=== PATIENT | female | born 1935 | race Caucasian/White ===

== ENCOUNTER 2020-01-30 15:17 | Emergency (ER) | payer MEDICARE ==
[~2020-01-30] VITALS: Ht 167.6 cm; Wt 90.7 kg
[2020-01-30] MEDS ORDERED: ATORVASTATIN CA20 MG PO (15:40)
[2020-01-30] MEDS ORDERED: METOPROLOL SUCC50 MG PO (15:40)
[2020-01-30] MEDS ORDERED: LEVALBUTEROL INH (15:40)
[2020-01-30] MEDS ORDERED: SPIRIVA18 MCG INH (15:40)
[2020-01-30] MEDS ORDERED: LEVOTHYROXINE100 MC1 PO (15:40)
[2020-01-30] MEDS ORDERED: RYTHMOL SR225 MG PO (15:40)
[2020-01-30] MEDS ORDERED: SYMBICORT 16010.2 GM INH (15:40)
[2020-01-30] MEDS ORDERED: LOSARTAN POTAS100 MG PO (15:40)
[2020-01-30] MEDS ORDERED: LEVALBUTER0.63 MG/3 NEB (15:40)
[2020-01-30] MEDS ORDERED: ELIQUIS5 M1 PO (15:40)
--- NOTE | 2020-01-30 15:42 | Emergency Department Note ---
History of Present Illnes History of Present Illness Chief Complaint: painful rash on forehead History of Present Illness This is a 84 year old female. was doing well until 1 week ago then fell hit forehead. went to the ER and had negative ct scan of the brain. Historian: Patient, Family Member Arrival Mode: Car History limited by: condition of the patient (normal) Integration Developer Required: No Onset (how long ago): day(s) (1) Location: see above Quality: sharp Radiation: Reports non-radiation Severity: moderate Onset quality: gradual Duration (how long): day(s) (1) Timing of current episode: constant Progression: worsening Chronicity: new Context: Denies recent illness, Denies recent surgery, Denies recent immobilization, Denies recent travel, Denies trauma/injury, Denies new medications, Denies hx of DVT/PE, Denies non-compliance w/ medications Relieving factors: none Exacerbating factors: none Associated symptoms: Reports rash Treatments prior to arrival: none Past Medical/Family History Physician Review I have reviewed the patient's past medical and family history. Any updates have been documented here. Past Medical History Recent Fever: No Clinical Suspicion of Infectio: Yes New/Unexplained Change in Ment: No Past Medical History: Hypertension, COPD, Hypothyroidism, Hyperlipedemia Past Surgical History: Cholecysctectomy, Hysterectomy, Knee Replacement Other Surgery: breast biopsy (benign) Social History Smoking Cessation: Never Smoker Counseling Performed: No Any Illegal Drug Use: No TB Exposure/Symptoms: No Physically hurt or threatened: No Family History Family history of heart diseas: No Other Any Pre-Existing Lines (PICC,: No Is patient up to date on immun: No Review of Systems Review of Systems Constitutional: Reports no symptoms EENTM: Reports no symptoms Cardiovascular: Reports no symptoms Respiratory: Reports no symptoms Gastrointestinal: Reports no symptoms Genitourinary: Reports no symptoms Musculoskeletal: Reports no symptoms Integumentary: Reports as per HPI Neurological: Reports no symptoms Psychological: Reports no symptoms Endocrine: Reports no symptoms Hematological/Lymphatic: Reports no symptoms Review of other systems: All other systems negative Physical Exam Related Data Allergies: Coded Allergies: cephalexin (Verified Allergy, Unknown, 01/30/20) codeine (Verified Allergy, Unknown, 01/30/20) Triage Vital Signs Vital Signs Date Time Temp Pulse Resp B/P (MAP) Pulse Ox O2 Delivery O2 Flow Rate FiO2 01/30/20 15:27 99.1 77 20 167/92 95 Room Air Vital signs reviewed: Yes Physical Exam CONSTITUTIONAL Constitutional: Present well-developed, Present well-nourished HENT HENT: Present normocephalic, Present atraumatic, Present oropharynx clear/moist, Present nose normal HENT L/R: Present left ext ear normal, Present right ext ear normal EYES Eyes: Reports PERRL, Reports conjunctivae normal NECK Neck: Present ROM normal PULMONARY Pulmonary: Present effort normal, Present breath sounds normal CARDIOVASCULAR Cardiovascular: Present regular rhythm, Present heart sounds normal, Present capillary refill normal, Present normal rate GASTROINTESTINAL Abdominal: Present soft, Present nontender, Present bowel sounds normal GENITOURINARY Genitourinary: Present exam deferred SKIN Skin: Present warm, Present dry, Present erythema (5cm diameter/healing abrasion/foread hematoma) MUSCULOSKELETAL Musculoskeletal: Present ROM normal NEUROLOGICAL Neurological: Present alert, Present oriented x 3, Present no gross motor or sensory deficits PSYCHOLOGICAL Psychological: Present mood/affect normal, Present judgement normal Assessment & Plan Medical Decision Making MDM cellulitis Assessment & Plan Final Impression: (1) Cellulitis Depart Disposition: HOME, SELF-CARE Last Vital Signs Date Time Temp Pulse Resp B/P (MAP) Pulse Ox O2 Delivery O2 Flow Rate FiO2 01/30/20 15:27 99.1 77 20 167/92 95 Room Air Home Meds Active Scripts Prednisone (PREDNISONE) 20 Mg Tab, 60 MG PO DAILY PRN for MODERATE PAIN (4-6), #12 TAB take all 3 20 mg pills at once Prov:PATY CARRERO 01/30/20 Doxycycline Hyclate (DOXYCYCLINE HYCLATE) 100 Mg Tablet, 100 MG PO Q12H, #20 TAB Prov:PATY CARRERO 01/30/20 Sulfamethoxazole/Trimethoprim (BACTRIM DS TABLET) 1 Each Tablet, 1 TAB PO Q12H, #28 TAB Prov:PATY CARRERO 01/30/20 Reported Medications Atorvastatin Calcium (ATORVASTATIN CALCIUM) 20 Mg Tablet, 20 MG PO HS, #30 TAB 01/30/20 [levalbuterol tar hfa] No Conflict Check, 45 MCG INH PRN 01/30/20 Metoprolol Succinate (METOPROLOL SUCCINATE) 50 Mg Tab.er.24h, 50 MG PO DAILY, MG 01/30/20 Apixaban (Eliquis) 5 Mg Tab.ds.pk, 1 TAB PO DAILY 01/30/20 Budesonide/Formoterol Fumarate (SYMBICORT 160-4.5 MCG INHALER) 10.2 Gm Hfa.aer.ad, 0 INH BID, INH 2 PUFFS 01/30/20 Tiotropium Deaver (SPIRIVA) 18 Mcg Cap.w.dev, 18 MCG INH, ML 01/30/20 Propafenone Hcl (RYTHMOL SR) 225 Mg Capcr, 225 MG PO BID, CAP 01/30/20 Losartan Potassium (LOSARTAN POTASSIUM) 100 Mg Tablet, 100 MG PO PRN, TAB 01/30/20 Levothyroxine Sodium (LEVOTHYROXINE SODIUM) 100 Mcg Vial, 200 MCG PO DAILY, ML 01/30/20 Discontinued Reported Medications Levalbuterol Hcl (LEVALBUTEROL HCL) 0.63 Mg/3 Ml Vial.neb, 0.63 MG NEB, EACH 01/30/20 PATY CARRERO Jan 30, 2020 15:42
[2020-01-30] MEDS: SODIUM CHLORIDE FLUSH 10 ML SYR INJ PRN (15:51)
[2020-01-30] MEDS ORDERED: CLINDAMYCIN PHOS 300MG/2ML VIAL ONE (15:51)
[2020-01-30] MEDS ORDERED: METHYLPREDNISOLONE SOD SUCC 125 MG/2ML VIAL ONE (15:51)
[2020-01-30] MEDS: CLINDAMYCIN 600 MG/50 ML IV ONE (15:51)
[2020-01-30] MEDS: METHYLPREDNISOLONE SOD SUCC 125 MG/2ML VIAL IV ONE (15:51)
[2020-01-30] MEDS: TRIMETHOPRIM/SULFAMETHOXAZOLE 160-800 MG TAB PO ONE (15:52)
[2020-01-30] MEDS: CLINDAMYCIN 300 MG IV STA (15:52)
[2020-01-30] MEDS ORDERED: CLINDAMYCIN 600MG / 50ML 50 ML IV ONE (15:52)
[2020-01-30] MEDS: TRAMADOL HCL 50 MG TAB PO ONE (16:15)
[2020-01-30] MEDS ORDERED: TRAMADOL HCL 50 MG TAB ONE (16:21)
--- OUTSIDE RECORDS SUMMARY | 2020-01-30 16:38 | XMS REPORT | Clinical Summary ---
Author Author Reynold [facility] Organization [facility] Address Unknown Phone Unavailable Care Team Providers Care Client Solutions Specialist Name Role Phone Asked, No Pcp PCP Unavailable Allergies Comments Active Allergy Reactions Severity Noted Date Codeine Anaphylaxis High 02/08/2016 Cephalexin Rash Low 02/08/2016 Medications End Date Status Medication Sig Dispensed Refills Start Date Active levothyroxine (SYNTHROID, 0 LEVOTHROID) 200 MCG 6 tablet Active levothyroxine (SYNTHROID, 0 LEVOTHROID) 25 MCG tablet 6 Active propafenone SR (RYTHMOL 2 (two) times 0 SR) 225 MG 12 hr capsule a day. 6 Active aspirin (ECOTRIN) 81 MG Take 81 mg by 0 enteric coated tablet mouth daily. Active multivitamin (THERAGRAN) Take 1 tablet 0 tablet by mouth daily. Active cholecalciferol, vitamin Take 1,000 0 D3, (VITAMIN D3) 1,000 Units by unit tablet mouth daily. 07/29/2019 Discontinued (Stop Taking at Discharge) VESICARE 5 mg tablet 0 6 08/28/2019 atorvastatin (LIPITOR) 20 Take 1 tablet 30 tablet 0 mg tablet (20 mg total) 0 by mouth nightly for 30 days. Default OP ins 08/29/2019 metoprolol succinate XL Take 1 tablet 30 tablet 0 (TOPROL-XL) 25 mg 24 hr (25 mg total) 0 tablet by mouth daily for 30 days. Active Problems Problem Noted Date Bradycardia 07/24/2019 Encounters Care Team Description Date Type Specialty Sae Wolff MD Pacemaker insertion new or replacement [ 19011 (CPT)] 07/27/2019 Surgery Procedural Cardiolo gy Deb Nance MD Li, George C., MD Bradycardia (Primary Dx) 07/24/2019 [facility] Internal Me dicine - Encounter 07/29/2019 after 01/29/2019 Surgical History Surgery Date Site/Laterality Comments CARDIAC CATHETERIZATION 02/08/2016 N/A Proced ure: Cv left heart cath; Surgeon: Rj Hyde MD; Location: [facility] Location; Service: Cardiovascular; Laterality: N /A; CARDIAC CATHETERIZATION 02/08/2016 N/A Proced ure: Cv selective coronary angiography; Surgeon: Rj Hyde MD; Location: [facility] Location; Service: Cardiovasc ular; Laterality: N/A; CARDIAC CATHETERIZATION 02/08/2016 N/A Proced ure: Left ventriculography; Surgeon: Rj Hyde MD; Location: [facility] Location; Service: Cardiovascular; La terality: N/A; CARDIAC ELECTROPHYSIOLOGY 07/27/2019 N/A Proc edure: Pacemaker insertion new or replacement; PROCEDURE Surgeon: Sae Wolff M D; Location: [facility] Location; Service: Cardiovascular; Laterality: N/A; Abbo tt Medical devices from this surgery are i n the Implants section. Medical History Medical History Date Comments Heart murmur Hypertension Disease of thyroid gland Arrhythmia COPD (chronic obstructive pulmonary disease) (HCC) Coronary artery disease Family History Medical History Relation Name Comments Heart attack Brother Heart disease Brother Heart attack Father Heart disease Father Cancer Mother Hypertension Mother Heart disease Paternal Aunt Heart disease Paternal Uncle Relation Name Status Comments Brother Father Mother Paternal Aunt Paternal Uncle Social History Date Tobacco Use Types Packs/Day Years Used Former Smoker Cigarettes 30 Smokeless Tobacco: Never Used Drinks/Week oz/Week Comments Alcohol Use No Sex Assigned at Date Recorded Not on file Last Filed Vital Signs Reading Time Taken Comments Vital Sign 133/76 07/29/2019 7:40 AM CDT Blood Pressure 80 07/29/2019 7:40 AM CDT Pulse 36.4 C (97.6 F) 07/29/2019 7:40 AM CDT Temperature 18 07/29/2019 7:40 AM CDT Respiratory Rate 94% 07/29/2019 7:40 AM CDT Oxygen Saturation - - Inhaled Oxygen Concentration 90.2 kg (198 lb 14.4 oz) 07/29/2019 5:00 AM CDT Weight 170.2 cm (5' 7") 07/24/2019 6:15 PM CDT Height 31.15 07/24/2019 6:15 PM CDT Body Mass Index Plan of Treatment Health Maintenance Due Date Last Done Comments SHINGLES VACCINES (#1) 1987 65+ PNEUMOCOCCAL VACCINE 2002 (1 of 1 - PPSV23) INFLUENZA VACCINE 10/09/2019 Implants Device Identifier Shelf Expiration Date Model / Serial / L ot Implanted Type Area Manufactur er 12/07/2020 [id number] / [id number] / [id number] Assurity Mri Dual - [id number] Cardiac N/A: N/ A Implanted: 07/27/2019 at [facility] Pacemaker [facility]PITAL (Quantity not on file) Generators 06/07/20222087TC/52 / [id number] / [id number] Tendril Sts, Pacemaker Leads, Model Cardiac N/ A: N/A 52 - [id number] Pacing Implanted: 07/27/2019 at [facility] Leads or HOSPITAL (Quantity not on file) Electrodes or Accessorie s 05/07/20228TC/46 / [id number] / [id number] Lead Pace Bipolar Is-1 Endocrdl Cardiac N/A: N/A [facility] 46cm - [id number] Pacing MEDICAL Implanted: 07/27/2019 at [facility] Leads or [facility] (Quantity not on file) Electrodes or Accessorie s [id number] / / Envlp Impl Crdvrtr Dfb Antbctrl Cardiovasc N/A: N/A [employer] Fully Resorb Lg Aigissrx R - ular [id number] Implants Implanted: 07/27/2019 at [facility] HOSPITAL (Quantity not on file) Right Knee Procedures Comments Procedure Name Priority Date/Time Associated Diag nosis ESTIMATED GFR Routine 07/29/2019 4:00 AM CDT PHOSPHORUS LEVEL Routine 07/29/2019 4:00 AM CDT MAGNESIUM LEVEL Routine 07/29/2019 4:00 AM CDT BASIC METABOLIC PANEL Routine 07/29/2019 4:00 AM CDT HC COMPLETE BLD COUNT Routine 07/29/2019 W/AUTO DIFF 4:00 AM CDT IONIZED CALCIUM Routine 07/29/2019 4:00 AM CDT ECG 12-LEAD Routine 07/28/2019 6:02 AM CDT XR CHEST 1 VW PORTABLE Routine 07/28/2019 5:40 AM CDT IONIZED CALCIUM Routine 07/28/2019 3:41 AM CDT ESTIMATED GFR Routine 07/28/2019 3:25 AM CDT PHOSPHORUS LEVEL Routine 07/28/2019 3:25 AM CDT HC COMPLETE BLD COUNT Routine 07/28/2019 W/AUTO DIFF 3:25 AM CDT MAGNESIUM LEVEL Routine 07/28/2019 3:25 AM CDT BASIC METABOLIC PANEL Routine 07/28/2019 3:25 AM CDT XR CHEST 1 VW PORTABLE Routine 07/27/2019 5:14 PM CDT EP PACEMAKER INSERTION Routine 07/27/2019 NEW OR REPLACEMENT 3:55 PM CDT PHOSPHORUS LEVEL Routine 07/27/2019 3:20 AM CDT MAGNESIUM LEVEL Routine 07/27/2019 3:20 AM CDT ESTIMATED GFR Routine 07/27/2019 3:20 AM CDT PARTIAL THROMBOPLASTIN Routine 07/27/2019 TIME (PTT) 3:20 AM CDT IONIZED CALCIUM Routine 07/27/2019 3:20 AM CDT HC COMPLETE BLD COUNT Routine 07/27/2019 W/AUTO DIFF 3:20 AM CDT COMPREHENSIVE METABOLIC Routine 07/27/2019 PANEL 3:20 AM CDT ECG 12-LEAD Routine 07/26/2019 7:58 AM CDT POC GLUCOSE Routine 07/26/2019 7:35 AM CDT PHOSPHORUS LEVEL Routine 07/26/2019 4:00 AM CDT MAGNESIUM LEVEL Routine 07/26/2019 4:00 AM CDT ESTIMATED GFR Routine 07/26/2019 4:00 AM CDT PARTIAL THROMBOPLASTIN Routine 07/26/2019 TIME (PTT) 4:00 AM CDT IONIZED CALCIUM Routine 07/26/2019 4:00 AM CDT HC COMPLETE BLD COUNT Routine 07/26/2019 W/AUTO DIFF 4:00 AM CDT COMPREHENSIVE METABOLIC Routine 07/26/2019 PANEL 4:00 AM CDT PARTIAL THROMBOPLASTIN Timed 07/25/2019 TIME (PTT) 12:00 PM CDT TTE COMPLETE, WO Routine 07/25/2019 CONTRAST, W DOPPLER 11:54 AM CDT (97852) POC GLUCOSE Routine 07/25/2019 7:20 AM CDT TROPONIN Routine 07/25/2019 5:15 AM CDT PARTIAL THROMBOPLASTIN Timed 07/25/2019 TIME (PTT) 5:15 AM CDT ESTIMATED GFR Routine 07/25/2019 5:15 AM CDT MAGNESIUM LEVEL Routine 07/25/2019 5:15 AM CDT IONIZED CALCIUM Routine 07/25/2019 5:15 AM CDT HC COMPLETE BLD COUNT Routine 07/25/2019 W/AUTO DIFF 5:15 AM CDT COMPREHENSIVE METABOLIC Routine 07/25/2019 PANEL 5:15 AM CDT LIPID PANEL Routine 07/25/2019 5:15 AM CDT T4, FREE Routine 07/25/2019 5:15 AM CDT THYROID STIMULATING Routine 07/25/2019 HORMONE 5:15 AM CDT PHOSPHORUS LEVEL Routine 07/25/2019 5:15 AM CDT POC GLUCOSE Routine 07/24/2019 9:17 PM CDT BLOOD CULTURE, AEROBIC & Routine 07/24/2019 ANAEROBIC 8:45 PM CDT BLOOD CULTURE, AEROBIC & Routine 07/24/2019 ANAEROBIC 8:40 PM CDT ECG 12-LEAD Routine 07/24/2019 7:06 PM CDT HC COMPLETE BLD COUNT Timed 07/24/2019 W/AUTO DIFF 6:21 PM CDT HEMOGLOBIN A1C Timed 07/24/2019 6:20 PM CDT PARTIAL THROMBOPLASTIN Timed 07/24/2019 TIME (PTT) 6:19 PM CDT PROTHROMBIN TIME WITH INR Timed 07/24/2019 6:19 PM CDT ESTIMATED GFR Routine 07/24/2019 6:16 PM CDT LACTIC ACID LEVEL Routine 07/24/2019 6:16 PM CDT B NATRIURETIC PEPTIDE Routine 07/24/2019 6:16 PM CDT T4, FREE Routine 07/24/2019 6:16 PM CDT THYROID STIMULATING Routine 07/24/2019 HORMONE 6:16 PM CDT IONIZED CALCIUM Routine 07/24/2019 6:16 PM CDT PHOSPHORUS LEVEL Routine 07/24/2019 6:16 PM CDT MAGNESIUM LEVEL Routine 07/24/2019 6:16 PM CDT HEPATIC FUNCTION PANEL Routine 07/24/2019 6:16 PM CDT BASIC METABOLIC PANEL Routine 07/24/2019 6:16 PM CDT HC COMPLETE BLD COUNT Routine 07/24/2019 W/AUTO DIFF 6:15 PM CDT XR CHEST 1 VW PORTABLE STAT 07/24/2019 5:54 PM CDT ECG 12-LEAD Routine 07/24/2019 5:42 PM CDT ESTIMATED GFR Timed 07/24/2019 5:41 PM CDT PHOSPHORUS LEVEL Timed 07/24/2019 5:41 PM CDT MAGNESIUM LEVEL Timed 07/24/2019 5:41 PM CDT BASIC METABOLIC PANEL Timed 07/24/2019 5:41 PM CDT POC GLUCOSE Routine 07/24/2019 5:37 PM CDT TROPONIN Routine 07/24/2019 5:35 PM CDT LIPID PANEL Routine 07/24/2019 5:33 PM CDT after 01/29/2019 Results * Estimated GFR (07/29/2019 4:00 AM CDT) Only the most recent of 7 results within the time period is included. Estimated GFR 72 mL/min/1.73 m2 [facility] Comment: [facility] Interpretation G1 >=90 Normal or high G2 60-89 Mildly decreased G3a 45-59 Mildly to moderately decreased G3b 30-44 Moderately to severely decreased G4 15-29 Severely decreased G5 <15 Kidney failure The eGFR was calculated using the Chronic Kidney Disease Epidemiology Collaboration (CKD-EPI) equation. Interpretation is based on recommendations of the National Kidney Foundation-Kidney Disease Outcomes Quality Initiative (NKF-KDOQI) published in 2014. Specimen Performing Organization Address City/State/ZIP Code P kenrick Number [facility] DEPARTMENT OF [address] [place] [address] PATHOLOGY AND GENOMIC MEDICINE [place] [address] [place] [address] HOSPITAL * CBC with platelet and differential (07/29/2019 4:00 AM CDT) Only the most recent of 7 results within the time period is included. WBC 7.26 4.50 - 11.00 k/uL [facility] RBC 4.20 4.20 - 5.50 m/uL [facility] HGB 13.4 12.0 - 16.0 g/dL [facility] HCT 41.9 37.0 - 47.0 % [facility] MCV 99.8 82.0 - 100.0 fL [facility] MCH 31.9 27.0 - 34.0 pg [facility] MCHC 32.0 31.0 - 37.0 g/dL [facility] RDW - SD 49.5 37.0 - 55.0 fL [facility] MPV 11.1 8.8 - 13.2 fL [facility] Platelet count 146 (L) 150 - 400 k/uL [facility] Nucleated RBC 0.00 /100 WBC [facility] Neutrophils 63.2 39.0 - 69.0 % [facility] Lymphocytes 20.1 (L) 25.0 - 45.0 % [facility] Monocytes 13.9 (H) 0.0 - 10.0 % [facility] Eosinophils 1.9 0.0 - 5.0 % [facility] Basophils 0.6 0.0 - 1.0 % [facility] Immature 0.3Comment: "Immature 0.0 - 1.0 % [facility] granulocytes granulocytes" (promyelocytes, METHOD [facility] myelocytes, metamyelocytes) HOSPITAL Specimen Blood Performing Organization Address City/State/[place] [address] PATHOLOGY AND [facility] MEDICINE [address] * Phosphorus level (07/29/2019 4:00 AM CDT) Only the most recent of 7 results within the time period is included. Phosphorus 3.3 2.4 - 4.5 mg/dL [facility] Specimen Blood Performing Organization Address City/State/[place] [address] PATHOLOGY AND [facility] [address] * Magnesium level (07/29/2019 4:00 AM CDT) Only the most recent of 7 results within the time period is included. Pathologist [facility] Magnesium 1.8 1.6 - 2.4 mg/dL [facility] Specimen Blood Performing Organization Address City/[facility]/ZIP [facility] P kenrick Number [facility] [place] [address] PATHOLOGY AND GENOMIC MEDICINE [address] * Ionized calcium (07/29/2019 4:00 AM CDT) Only the most recent of 6 results within the time period is included. pH 7.38 [facility] Ionized calcium 1.20 1.11 - 1.32 mmol/L [facility] Specimen Blood Performing Organization Address City/[facility] P kenrick Number [facility] [place] [address] PATHOLOGY AND [facility] [address] * Basic metabolic panel (07/29/2019 4:00 AM CDT) Only the most recent of 4 results within the time period is included. [facility] Sodium 141 135 - 148 mEq/L [facility] Potassium 4.4 3.5 - 5.0 mEq/L [facility] Chloride 102 98 - 112 mEq/L [facility] CO2 30 24 - 31 mEq/L [facility] Anion gap 9@ANIO 7 - 15 mEq/L [facility] BUN 13 8 - 23 mg/dL [facility] Creatinine 0.77 0.50 - 0.90 mg/dL [facility] Glucose 110 (H) 65 - 99 mg/dL [facility] Calcium 9.3 8.8 - 10.2 mg/dL [facility] Specimen Blood Performing Organization Address City/[facility] P kenrick Number [facility] DEPARTMENT OF [address] [place] [address] PATHOLOGY AND GENOMIC MEDICINE [address] * ECG 12 lead (07/28/2019 6:02 AM CDT) Only the most recent of 4 results within the time period is included. Ventricular 65 [facility] rate Atrial rate 65 [facility] KS interval 152 [facility] QRSD interval 82 [facility] QT interval 434 [facility] QTC interval 451 [facility] P axis 1 59 [facility] QRS axis 1 74 [facility] T wave axis 76 [facility] M[facility] EKG impression Normal sinus rhythm-Normal [facility] ECG-In automated comparison with ECG of 26-JUL-2019 07:58,-No significant change was found- Specimen Narrative Performed At This result has an attachment that is n ot available. Performing Organization Address City/State/ZIP Code P kenrick Number [facility] MUSE [address] [place] [address] * XR Chest 1 Vw Portable (07/28/2019 5:40 AM CDT) Only the most recent of 3 results within the time period is included. Specimen Narrative Performed At Examination: XR CHEST 1 VW PORTABLE RADIANT Clinical history: "ICU pt recent tu be or catheter insert, ICU pt stable with no clinical status changes" Comparison: Prior imaging, including a chest radiograph obtained on 07/27/2019. One radiographic view of the chest was evaluated. Impression: Interstitial and trace alveolar opaciti es within both lungs appear unchanged. A tiny left pleural effusion cannot b e excluded; there is no apparent right pleural effusion. Indwelling support devices/catheters appear generally stable in position. No pneumothoraces are identified. The c ardiomediastinal silhouette and the remainder of the chest appear essential ly unchanged. [facility] Procedure Note Hm Interface, Radiology Results Incoming - 07/28/2019 5:47 AM CDT Examination: XR CHEST 1 VW PORTABLE Clinical history: "ICU pt recent tube or catheter insert, ICU pt stable with no clinical status changes" Comparison: Prior imaging, including a chest radiograph obtained on 07/27/2019. One radiographic view of the chest was evaluated. Impression: Interstitial and trace alveolar opacities within both lungs appear unchanged. A tiny left pleural effusion cannot be excluded; there is no apparent right pleural effusion. Indwelling support devices/catheters appear generally stable in position. No pneumothoraces are identified. The cardiomediastinal silhouette and the remainder of the chest appear essentially unchanged. [facility] Performing Organization Address City/State/ZIP Code P kenrick Number [facility] [address] [place] [address] * Electrophysiology procedure (07/27/2019 3:55 PM CDT) Specimen Narrative Performed At [facility] Electrophysiology Procedure Note REASON FOR PROCEDURE: Sick sinus syndrome PROCEDURE PERFORMED: Dual-chamber permanent pacemaker implan t. ANESTHESIA: Moderate sedation services were provide d and ordered by myself overseeing the Registered Nurse administration of the sedating agents and monitoring of the patient's condition per protocol for a total of 40 minutes COMPLICATIONS: None. ESTIMATED BLOOD LOSS: 10 mL. DESCRIPTION OF PROCEDURE: The patient was prepped in the usual st erile fashion. Local lidocaine infiltration of the skin and subcutaneous tissue was performed. A scalpel was used to make an incision in the left chest just below t he clavicle.A pocket was created in the prepectoral fascial layer. The left axillary vein was accessed x2 and J-wires x2 were advanced into the infer ior vena cava. Over the first J-wire, a 6-Maltese sheath was placed an d a pacing lead was advanced through the sh eath and placed in the heart. The sheath was peeled away. Using stylets, lead wa s placed in the right ventricular apex and secured to the myocardium. The sens ed R-wave was 13 millivolts, pacing impedance 604 ohms, pacing threshold 0. 8 volts at 0.5 milliseconds. There was no diaphragmatic capture with 10-volt p acing. A 6-Maltese sheath was placed over the s econd J-wire and a pacing lead was advanced through the sheath and placed in the heart. The sheath was peeled away. Using stylets, the lead was placed in t he right atrial appendage and secured to the myocardium. The sensed P-wave was 6 mil livolts, pacing impedance 512 ohms, pacing threshold 0.4 volts at 0.4 zachary seconds. There was no diaphragmatic capture with 10-volt pacing. The leads were secured with 0 Ethibond sutures x2 over the Silastic collar. Bovie cautery was used to achieve hemostasis. The leads were attached to the generator. The generator and leads were placed in the pocket. The generator was secured with a stitch. Th e pocket was then closed with running layers of 0-0, 3-0, and 4-0 Ronni ryl sutures in fascia, subcutaneous, and subcuticular layers. Dermabond and a Dermanet dressing were applied. Performing Organization Address [facility] Code P [facility] Number [facility] [address] [place] [address], * Partial thromboplastin time, activated (07/27/2019 3:20 AM CDT) Only the most recent of 5 results within the time period is included. PTT 40.8 (H) 23.0 - 36.0 sec [facility] Comment: [facility] PTT therapeutic range for HOSPITAL unfractionated heparin is 61.0-112.0 seconds which corresponds to Anti-Xa 0.3-0.7 U/ml. Specimen Blood Performing Organization Address [facility] P kenrick Number [facility] DEPARTMENT OF [address] [place] [address] PATHOLOGY AND GENOMIC MEDICINE [address] * Comprehensive metabolic panel (07/27/2019 3:20 AM CDT) Only the most recent of 3 results within the time period is included. Sodium 144 135 - 148 mEq/L [facility] Potassium 3.9 3.5 - 5.0 mEq/L [facility] Chloride 104 98 - 112 mEq/L [facility] CO2 24 24 - 31 mEq/L [facility] Anion gap 16@ANIO (H) 7 - 15 mEq/L [facility] BUN 11 8 - 23 mg/dL [facility] Creatinine 0.77 0.50 - 0.90 mg/dL [facility] Glucose 108 (H) 65 - 99 mg/dL [facility] Calcium 9.8 8.8 - 10.2 mg/dL [facility] Protein 7.2 6.3 - 8.3 g/dL [facility] Comment: [facility] Kosse 4.6-7.0 g/dL 1 week 4.4-7.6 g/dL 7 months-1year 5.1-7.3 g/dL 1-2 years 5.6-7.5 g/dL >3 years 6.0-8.0 g/dL 18-150 6.3-8.3 g/dL Albumin 3.6 3.5 - 5.0 g/dL [facility] A/G ratio 1.0 0.7 - 3.8 [facility] Alkaline 63 35 - 104 U/L [facility] phosphatase [facility] AST 34 10 - 35 U/L [facility] ALT 32 5 - 50 U/L [facility] Total bilirubin 0.7 0.0 - 1.2 mg/dL [facility] Specimen Blood Performing Organization Address [facility] P kenrick Number [facility] [place] [address] PATHOLOGY AND GENOMIC MEDICINE [address] * POC glucose (07/26/2019 7:35 AM CDT) Only the most recent of 4 results within the time period is included. POC glucose 102 (H) 65 - 99 mg/dL [facility] Comment: [facility] Contact Center Rep Name: [facility] Device ID: [id number] Chartable: No Action Needed Specimen Blood Performing Organization Address [facility] [place] [address] PATHOLOGY AND GENOMIC MEDICINE [address] * Transthoracic Echocardiogram Complete, (w Contrast, Strain and 3D if needed) (07/25/2019 11:54 AM CDT) Specimen Narrative Performed At [facility] Echo cardiography Report [id number] [place] [address] Pat.Name: ELLA ZIMMER Pat.ID: [id number] .Date: 07/25/2019 Refer.MD: RANJITH TILLMAN MD Exam Time: 11:10:00 AM Study Type:Routine Echo Height: 67in Weight: 198lb BSA: 2.02 m2 Age: 12 1935,84Y Sex: FEMALE Sonogrphr: Sofya Tan RDCS, RVS Pat. Stat.:Inpatient Room: [place] [address] Study Status:Final Echo Event ID:[id number] Order ID: [id number] Reason for Study:Atrial fibrillation Procedures: 2D Echo, Colorflow Doppler SUMMARY: LV EF is hyperdynamic. RV systolic function is normal. LA volume is severely enlarged. LV filling pressure is normal. Estimated PA systolic pressure is 30 mm Hg, assuming a mean RAP of 5 mmHg. FINDINGS: LV: Normal average LV global l ongitudinal strain at -18.8%. LV EF is hyperdynamic. Overa ll wall motion is normal. Estimated EF is >70%. RV: RV size is normal. RV syst olic function is normal. LA: LA volume is severely enla rged. RA: RA volume is mildly enlarg ed. AO: Aortic root diameter is no rmal. YASSINE: No pericardial effusion. AV: No structural AV abnormali ties noted. MV: No structural MV abnormali ties noted. PV: No structural PV abnormali ties noted. A trace of pulmonic regurgitation. TV: No structural TV abnormali ties noted. A trace of tricuspid regurgitation [place]: LV filling pressure is norm al. Other: Estimated PA systolic press ure is 30 mmHg, assuming a mean RAP of 5 mmHg. MEASUREMENTS: 2D Parasternal [place] Ao An 2.5 cm LVPWd 1 cm Ao Rtd 3.5 cm Index 1.7 cm/m2 LA Ds 3.8 cm IVSd 1 cm RWT 0.38 LVIDd 5.5 cm Index 2.7 cm/m2 LV Mass 219 g (87-12 9)* LVIDs 3.3 cm LVM Index 108 g/m LV%fs 40 % LVOT 2.2 cm LA Sng Plane LA Area 32 cm (8.8-2 3.4)* LA Vol 124 ml Index 61 ml/m2 LA LngAx 7 cm RA Sng Plane RA Vol 75 ml Index 37 ml/m2 RA LngAx 6.4 cm RA Area 23 cm (8.3-1 9.5)* LVOT LVOT Area 3.7 cm DOPPLER LVOT Stroke Vol LVOT TVI 30 cm HR 50 bpm LVOT LVOT SV 112 ml LVOT CO 5.6 l/min SVi 55 ml/m LVOT CI 2.8 l/m/m Signed 07/25/2019 02:35 PM Major Cuellar M.D. Procedure Note Interface, Radiology Results In - 07/25/2019 2:36 PM CDT Echocardiography Report [address] [place] [address] Pat.Name: ELLA ZIMMER Pat.ID: [id number] .Date: 07/25/2019 Refer.MD: RANJITH TILLMAN MD Exam Time: 11:10:00 AM Study Type:Routine Echo Height: 67in Weight: 198lb BSA: 2.02 m2 Age: 14 1935,84Y Sex: FEMALE Sonogrphr: Sofya Tan RDCS, RVS Pat. Stat.:Inpatient Room: [place] [address] Study Status:Final Echo Event ID:[id number] Order ID: [id number] Reason for Study:Atrial fibrillation Procedures: 2D Echo, Colorflow Doppler SUMMARY: LV EF is hyperdynamic. RV systolic function is normal. LA volume is severely enlarged. LV filling pressure is normal. Estimated PA systolic pressure is 30 mmHg, assuming a mean RAP of 5 mmHg. FINDINGS: LV: Normal average LV global longitudinal strain at -18.8%. LV EF is hyperdynamic. Overall wall motion is normal. Estimated EF is >70%. RV: RV size is normal. RV systolic function is normal. LA: LA volume is severely enlarged. RA: RA volume is mildly enlarged. AO: Aortic root diameter is normal. YASSINE: No pericardial effusion. AV: No structural AV abnormalities noted. MV: No structural MV abnormalities noted. PV: No structural PV abnormalities noted. A trace of pulmonic regurgitation. TV: No structural TV abnormalities noted. A trace of tricuspid regurgitation [place]: LV filling pressure is normal. Other: Estimated PA systolic pressure is 30 mmHg, assuming a mean RAP of 5 mmHg. MEASUREMENTS: 2D Parasternal [place] Ao An 2.5 cm LVPWd 1 cm Ao Rtd 3.5 cm Index 1.7 cm/m2 LA Ds 3.8 cm IVSd 1 cm RWT 0.38 LVIDd 5.5 cm Index 2.7 cm/m2 LV Mass 219 g (87-129)* LVIDs 3.3 cm LVM Index 108 g/m LV%fs 40 % LVOT 2.2 cm LA Sng Plane LA Area 32 cm (8.8-23.4)* LA Vol 124 ml Index 61 ml/m2 LA LngAx 7 cm RA Sng Plane RA Vol 75 ml Index 37 ml/m2 RA LngAx 6.4 cm RA Area 23 cm (8.3-19.5)* LVOT LVOT Area 3.7 cm DOPPLER LVOT Stroke Vol LVOT TVI 30 cm HR 50 bpm LVOT LVOT SV 112 ml LVOT CO 5.6 l/min SVi 55 ml/m LVOT CI 2.8 l/m/m Signed 07/25/2019 02:35 PM Major Cuellar M.D. Performing Organization Address [facility]/ZIP Code P [place] Number [facility] [address] [place] [address] * Troponin (07/25/2019 5:15 AM CDT) Only the most recent of 2 results within the time period is included. Troponin 0.017 0.000 - 0.040 ng/mL [place] Comment: [facility] In patients suspected of HOSPITAL having a myocardial infarction, along with all other appropriate clinical measures and actions including ECG and other diagnostics as appropriate, measure Ultra TnI at 0 hrs and at 3 hrs. Myocardial infarction VERY LIKELY The 0 hr TnI level is > 0.10 ng/mL Myocardial infarction LIKELY The 0 hr TnI level is > 0.04 ng/mL and 3 hr level is increased or decreased by at least 0.020 ng/mL Myocardial infarction VERY UNLIKELY Both the 0 hr and 3 hr TnI levels <= 0.04 ng/mL(within normal limits) OR 0 hr is > 0.04 ng/mL and 3 hr is increased OR decreased by less than 0.020 ng/mL Specimen Performing Organization Address [facility]/[place] Code P [place]enrick Number [facility] [address] [place] [id number] PATHOLOGY AND GENOMIC MEDICINE [address] * Thyroid stimulating hormone (07/25/2019 5:15 AM CDT) Only the most recent of 2 results within the time period is included. TSH 0.17 (L) 0.27 - 4.20 uIU/mL [facility] Specimen Blood Performing Organization Address City/[facility]/ZIP Code P kenrick Number [facility] [address] [place] [id number] PATHOLOGY [facility] MEDICINE [address] * T4, free (07/25/2019 5:15 AM CDT) Only the most recent of 2 results within the time period is included. T4, free 1.2 0.9 - 1.7 ng/dL [facility] Specimen Blood Performing Organization Address [facility] P kenrick Number [facility] [address] [place] [address] PATHOLOGY [facility] MEDICINE [address] * Lipid panel (07/25/2019 5:15 AM CDT) Only the most recent of 2 results within the time period is included. Cholesterol 129 <200 mg/dL [facility] Triglycerides 74 <150 mg/dL [facility] HDL cholesterol 51 >40 mg/dL [facility] LDL cholesterol 68Comment: Result obtained by <100 mg/dL [place] direct LDL measurement [facility] Comment: [facility] Total Cholesterol (mg/dL) [facility] <200 Desirable 200-239 Borderline-high >=240 High Triglycerides (mg/dL) <150 Normal 150-199 Borderline-high 200-499 High >=500 Very high HDL Cholesterol (mg/dL) <40 Low (male) <40 Low (female) LDL Cholesterol (mg/dL) <100 Optimal 100-129 Near or above optimal 130-159 Borderline-high 160-189 High >=190 Very high Risk Catergories that modify LDL goals. Risk Catergories LDL goal (mg/dL) CHD and CHD risk equivalent <100 (10-year risk >20%) Multiple (2+) risk factors <130 (10-year risk =<20%) 0-1 risk factors <160 (<10-year risk) Defining levels of lipids in metabolic syndrome Triglycerides >=150 mg/dL HDL Cholesterol Men <40 mg/dL Women <40 mg/dL Non-HDL cholesterol is a second target for therapy in persons with high triglycerides (>=200 mg/dL) Specimen Blood Performing Organization Address City/[facility] P kenrick Number [facility] [address] [place] * Blood culture, aerobic & anaerobic (07/24/2019 8:45 PM CDT) Only the most recent of 2 results within the time period is included. [facility] Blood culture No growth after 5 days of [place] isolate incubation. [facility] Comment: HOSPITAL Specimen Information Specimen Source: Blood Specimen Site: Arm, right Specimen Blood - Arm, right Performing Organization Address City/State/ZIP Code P [place]en[place] Number [facility] [address] * Hemoglobin A1c (07/24/2019 6:20 PM CDT) [facility] Hemoglobin A1C 5.2 4.0 - 5.6 % [facility] Comment: [facility] HbA1c cutoffs for diagnosing HOSPITAL diabetes: 4.0% - 5.6% = normal 5.7% - 6.4% = increased risk for diabetes (prediabetes)9 >=6.5% = diabetes9 Goals for glycemic control (ADA 2016) < 7.0% Target for non adults with diabetes. More or less stringent targets may be appropriate for individual patients. <7.5% Target for Children and adolescents with type 1 diabetes. Specimen Blood Performing Organization Address City/[facility]/[place] Code P kenrick Number [facility] [address] [facility] * Prothrombin time with INR (07/24/2019 6:19 PM CDT) [facility] Prothrombin 13.2 11.5 - 14.5 sec [facility] INR 1.0 [place] Comment: [facility] The International Normalized HOSPITAL Ratio (INR) is a therapeutic monitoring tool for patients who are stable on oral anticoagulant therapy. An INR of 2.0-3.0 is suggested for deep vein thrombosis/pulmonary embolism. Specimen Blood Performing Organization Address City/[facility] P kenrick Number [address] * B natriuretic peptide (07/24/2019 6:16 PM CDT) [facility] BNP 43 0 - 100 pg/mL [facility] Specimen Blood Performing Organization Address City/[facility] P kenrick Number [facility] [address] [place] [address] PATHOLOGY AND GENOMIC MEDICINE [address] * Lactic acid level (07/24/2019 6:16 PM CDT) [facility] Lactic acid 1.1 0.5 - 2.2 mmol/L [facility] Specimen Blood Performing Organization Address City/[facility] P kenrick Number [facility] [address] [place] [address] PATHOLOGY AND GENOMIC MEDICINE [address] * Hepatic function panel (07/24/2019 6:16 PM CDT) [facility] Albumin 3.2 (L) 3.5 - 5.0 g/dL [facility] Total bilirubin 0.6 0.0 - 1.2 mg/dL [facility] Bilirubin <0.2 0.0 - 0.3 mg/dL [place] direct [facility] Alkaline 66 35 - 104 U/L [facility] phosphatase [facility] Protein 6.8 6.3 - 8.3 g/dL [place] Comment: [facility] 4.6-7.0 g/dL 1 week 4.4-7.6 g/dL 7 months-1year 5.1-7.3 g/dL 1-2 years 5.6-7.5 g/dL >3 years 6.0-8.0 g/dL 18-150 6.3-8.3 g/dL ALT 36 5 - 50 U/L [facility] AST 20 10 - 35 U/L [facility] Specimen Blood Performing Organization Address City/[facility] P kenrick Number [facility] [address] [place] [address] PATHOLOGY AND GENOMIC MEDICINE [address] after 01/29/2019 Insurance Type Payer Benefit Subscriber ID Effective Phone Address Plan / Dates Group Commercial AARP AARP [id number] 2002- SUPPLEMENT Present Medicare MEDICARE MEDICARE [id number] 2002- [place], PART A [place] [phone] Advance Directives For more information, please contact: [phone] Patient [facility] Explanation Type Date Recorded Advance Directives, 08/12/2018 10:05 AM Living Will and Medical Power of Awning [employer]
--- OUTSIDE RECORDS SUMMARY | 2020-01-30 16:39 | XMS REPORT | Continuity of Care Document ---
Author Author [facility] t Organization [facility] Address [address] [place] [address] Phone Unavailable Care Team Providers Care Bioinformatics Assistant Name Role Phone Asked, Pcp No PCP Unavailable Goyo BURROUGHS, Nette Attphys Mary Ellen BURROUGHS, Ramiro De La Rosa Attphys New BURROUGHS, Juan Jose Quevedo Attphys NETTE SMITH Admphys Unavailable Payers Payer Name Policy Type Policy Number Effective Date Expiration Date S morena MONTIEL [id number] 2001-PresentCommercial [id number] 2002 00:00:00 Reynold Burrell MEDICAREMEDICARE PART A AND [id number] 2001-[facility] [place] [id number] 2002 00:00:00 Reynold Burrell Problems Condition Name Condition Details Condition Category Status Onset Date Resolution Date Last Treatment Date Treating Clinician Comments Source Bradycardia Bradycardia Disease Active 2019-07-24 00:00:00 Reynold Burrell Allergies, Adverse Reactions, Alerts Allergy Name Allergy Type Status Severity Reaction(s) Onset Date Inacti ve Date Treating Clinician Comments Source Codeine Propensity to adverse reactions to drug Active Anaphylaxis 2016-02-08 00:00:00 Reynold crump Cephalexin Propensity to adverse reactions to drug Active Rash 2016-02-08 00:00:00 Reynold crump Family History Family Member Diagnosis Comments Start Date Stop Date Source Natural brother Heart attack Reynold Burrell Natural brother Heart disease [facility] Natural father Heart attack Reynold Burrell Natural father Heart disease Reynold Burrell Natural mother Cancer [facility]odist Natural mother Hypertension Reynold Burrell Paternal aunt Heart disease Reynold Burrell Paternal uncle Heart disease Reynold Burrell Social History Social Habit Start Date Stop Date Quantity Comments Source History of tobacco use Cigarette Smoker Reynold Burrell Sex Assigned At [facility] Tobacco use and exposure 2019-07-28 00:00:00 2019-07-28 00:00:00 Jese arshad used Reynold Burrell Alcohol intake 2019-07-28 00:00:00 2019-07-28 00:00:00 Current non-drinker of alcohol (finding) Reynold Burrell Smoking Status Start Date Stop Date Source Former smoker 2019-07-28 00:00:00 2019-07-28 00:00:00 Reynold Burrell Medications Ordered Medication Name Filled Medication Name Start Date Stop Da te Current Medication? Ordering Clinician Indication Dosage Frequency Signature (SIG) Comments Components Source metoprolol succinate XL (TOPROL-XL) 25 mg 24 hr tablet 2019-07-30 00:00:00 2019-08-29 23:59:00 No 25mg QD Take 1 tablet (25 mg total) by mouth daily for 30 days. Reynold Burrell aspirin (ECOTRIN) 81 MG enteric coated tablet 2019-07-29 09:41:2 8 Yes 81mg QD Take 81 mg by mouth daily. H renan Burrell multivitamin (THERAGRAN) tablet 2019-07-29 09:41:28 Yes 1{tbl} QD Take 1 tablet by mouth daily. Reynold Burrell cholecalciferol, vitamin D3, (VITAMIN D3) 1,000 unit tablet 2019-07-29 09:41:28 Yes 1000U QD Take 1,000 Units by mouth abundio ly. Reynold Burrell atorvastatin (LIPITOR) 20 mg tablet 2019-07-29 00:00:0 0 2019-08-28 23:59:00 No 20mg QD Take 1 tablet ( 20 mg total) by mouth nightly for 30 days. Default OP ins Reynold Burrell propafenone SR (RYTHMOL SR) 225 MG 12 hr capsule 2016-01-11 00:00:00 Yes Q.5D 2 (two) times a day. Edin Burrell levothyroxine (SYNTHROID, LEVOTHROID) 200 MCG tablet 2 00:00:00 Yes Reynold crump levothyroxine (SYNTHROID, LEVOTHROID) 25 MCG tablet 2015-03 00:00:00 Yes Reynold Armas [facility]od[facility] VESICARE 5 mg tablet 2015-12-12 00:00:00 2019-07-29 00:00:00 No Reynold Burrell Vital Signs Vital Name Observation Time Observation Value Comments Source Systolic blood pressure 2019-07-29 07:40:36 133 mm[Hg] Reynold Burrell Diastolic blood pressure 2019-07-29 07:40:36 76 mm[Hg] Reynold Burrell Heart rate 2019-07-29 07:40:36 80 /min Reynold Burrell Body temperature 2019-07-29 07:40:36 36.44 [facility] Respiratory rate 2019-07-29 07:40:36 18 /min [place] [place] [facility] Oxygen saturation in Arterial blood by Pulse oximetry 07-28 07:40:36 94 /min Reynold Burrell Body weight 2019-07-29 05:00:00 90.22 kg Reynold Burrell BMI 2019-07-29 05:00:00 31.15 kg/m2 Reynold Burrell Body height 2019-07-24 18:15:00 170.2 cm Reynold Burrell Procedures Procedure Date / Time Performed Performing Clinician Sourc e IONIZED CALCIUM 2019-07-29 04:00:00 Zak Beltre HC COMPLETE BLD COUNT W/AUTO DIFF 2019-07-29 04:00:00 Urban Smith BASIC METABOLIC PANEL 2019-07-29 04:00:00 Nette Smith MAGNESIUM LEVEL 2019-07-29 04:00:00 Nette Smith Meth odist PHOSPHORUS LEVEL 2019-07-29 04:00:00 Nette Smith Met hodmary ESTIMATED GFR 2019-07-29 04:00:00 Nette Smith Meth odist ECG 12-LEAD 2019-07-28 06:02:01 Zak Beltre XR CHEST 1 VW PORTABLE 2019-07-28 05:40:48 Zak Beltre IONIZED CALCIUM 2019-07-28 03:41:00 Zak Beltre BASIC METABOLIC PANEL 2019-07-28 03:25:00 Zak Beltre MAGNESIUM LEVEL 2019-07-28 03:25:00 Zak Beltre [facility] HC COMPLETE BLD COUNT W/AUTO DIFF 2019-07-28 03:25:00 Patt Gray gus [facility] PHOSPHORUS LEVEL 2019-07-28 03:25:00 Zak Beltre on [facility] ESTIMATED GFR 2019-07-28 03:25:00 Nayan Garza [facility] XR CHEST 1 VW PORTABLE 2019-07-27 17:14:00 Sae Wolff on [facility] EP PACEMAKER INSERTION NEW OR REPLACEMENT 2019-07-27 15:55:51 Sae Ochoa [facility] COMPREHENSIVE METABOLIC PANEL 2019-07-27 03:20:00 Samir Tillman [facility] HC COMPLETE BLD COUNT W/AUTO DIFF 2019-07-27 03:20:00 Ko Tillman [facility] IONIZED CALCIUM 2019-07-27 03:20:00 Ranjith Tillman Met hodist PARTIAL THROMBOPLASTIN TIME (PTT) 2019-07-27 03:20:00 Urban Smith [facility] ESTIMATED GFR 2019-07-27 03:20:00 Nette Smith Meth odist MAGNESIUM LEVEL 2019-07-27 03:20:00 Nette Smith Meth odist PHOSPHORUS LEVEL 2019-07-27 03:20:00 Nette Smith Met hodist ECG 12-LEAD 2019-07-26 07:58:57 Nette Smith Meth odist POC GLUCOSE 2019-07-26 07:35:00 Nette Smith Meth odist COMPREHENSIVE METABOLIC PANEL 2019-07-26 04:00:00 Samir Tillman [facility] HC COMPLETE BLD COUNT W/AUTO DIFF 2019-07-26 04:00:00 Ko Tillman [facility] IONIZED CALCIUM 2019-07-26 04:00:00 Ranjith Tillman Met [facility]odist PARTIAL THROMBOPLASTIN TIME (PTT) 2019-07-26 04:00:00 Ko Tillman [facility] ESTIMATED GFR 2019-07-26 04:00:00 Ranjith Tillman Met hodist MAGNESIUM LEVEL 2019-07-26 04:00:00 VooreRanjith Met hodist PHOSPHORUS LEVEL 2019-07-26 04:00:00 Votomeka Denissezaira Flaherty Me thodist PARTIAL THROMBOPLASTIN TIME (PTT) 2019-07-25 12:00:00 Urban Smith TTE COMPLETE, WO CONTRAST, W DOPPLER ([id number]) 2019-07-25 11:5 4:00 Voore, Ranjith Burrell POC GLUCOSE 2019-07-25 07:20:00 Nette Smith Meth odist PHOSPHORUS LEVEL 2019-07-25 05:15:00 Nette Smith Met hodist THYROID STIMULATING HORMONE 2019-07-25 05:15:00 Nette Smith T4, FREE 2019-07-25 05:15:00 Nette Smith Meth odist LIPID PANEL 2019-07-25 05:15:00 Nette Smith Meth odist COMPREHENSIVE METABOLIC PANEL 2019-07-25 05:15:00 Voore, Samir [facility] HC COMPLETE BLD COUNT W/AUTO DIFF 2019-07-25 05:15:00 Voore, Ko Burrell IONIZED CALCIUM 2019-07-25 05:15:00 Voore, Ranjith [facility] MAGNESIUM LEVEL 2019-07-25 05:15:00 VooreDenissemichaelallison Flaherty Met hodist ESTIMATED GFR 2019-07-25 05:15:00 VooreRanjith Met hodist PARTIAL THROMBOPLASTIN TIME (PTT) 2019-07-25 05:15:00 Hilda Joy[facility] TROPONIN 2019-07-25 05:15:00 Voore, Ranjith [facility] POC GLUCOSE 2019-07-24 21:17:00 Nette mSith Meth odist BLOOD CULTURE, AEROBIC & ANAEROBIC 2019-07-24 20:45:00 Voore, Melchor Burrell BLOOD CULTURE, AEROBIC & ANAEROBIC 2019-07-24 20:40:00 Voore, Melchor Burrell ECG 12-LEAD 2019-07-24 19:06:22 Nette Smith Meth od[facility] HC COMPLETE BLD COUNT W/AUTO DIFF 2019-07-24 18:21:00 Urban Smith [facility] HEMOGLOBIN A1C 2019-07-24 18:20:00 Nette Smith Meth odist PROTHROMBIN TIME WITH INR 2019-07-24 18:19:00 Nette Smith [facility] PARTIAL THROMBOPLASTIN TIME (PTT) 2019-07-24 18:19:00 Urban Smith [facility] BASIC METABOLIC PANEL 2019-07-24 18:16:00 Voore, Ranjith Rene [facility] HEPATIC FUNCTION PANEL 2019-07-24 18:16:00 Voore, Ranjith [facility]aint [facility] MAGNESIUM LEVEL 2019-07-24 18:16:00 Voore, Ranjith Flaherty Met [facility]odist PHOSPHORUS LEVEL 2019-07-24 18:16:00 Voore, Ranjith [facility] Me [facility]ist IONIZED CALCIUM 2019-07-24 18:16:00 Voore, Ranjith Flaherty [facility] THYROID STIMULATING HORMONE 2019-07-24 18:16:00 Voore, Ranjith [facility] T4, FREE 2019-07-24 18:16:00 Voore, Ranjith [facility] B NATRIURETIC PEPTIDE 2019-07-24 18:16:00 Voore, Ranjith [facility] LACTIC ACID LEVEL 2019-07-24 18:16:00 Joshuaore, Ranjith Flaherty M ethodist ESTIMATED GFR 2019-07-24 18:16:00 Joshuaore, Ranjith Flaherty Met [facility] HC COMPLETE BLD COUNT W/AUTO DIFF 2019-07-24 18:15:00 Votomeka, Ko [facility] XR CHEST 1 VW PORTABLE 2019-07-24 17:54:51 Voore, Ranjith [facility] ECG 12-LEAD 2019-07-24 17:42:49 Ranjith Tillman Met [facility]odist BASIC METABOLIC PANEL 2019-07-24 17:41:00 Nette Smith n [facility] MAGNESIUM LEVEL 2019-07-24 17:41:00 Nette Smith Meth odist PHOSPHORUS LEVEL 2019-07-24 17:41:00 Nette Smith Met hodist ESTIMATED GFR 2019-07-24 17:41:00 Nette Smith Meth odist POC GLUCOSE 2019-07-24 17:37:00 Rj Hyde [facility] TROPONIN 2019-07-24 17:35:00 Ranjith Tillman [facility] LIPID PANEL 2019-07-24 17:33:00 Ranjith Tillman Met hodmary Plan of Care Planned Activity Planned Date Details Comments Source Future Scheduled Test 2019-10-09 00:00:00 INFLUENZA VACCINE [code = INFLUENZA VACCINE] [facility] Future Scheduled Test 2002 00:00:00 65+ PNEUMOCOCCAL V ACCINE (1 of 1 - PPSV23) [code = 65+ PNEUMOCOCCAL VACCINE (1 of 1 - PPSV23)] [facility] Future Scheduled Test 1987 00:00:00 SHINGLES VACCINES (#1) [code = SHINGLES VACCINES (#1)] Reynold Burrell Encounters Start Date/Time End Date/Time Encounter Type Ad[facility] En[facility] ID Source 2019-07-24 00:00:00 2019-07-29 00:00:00 Inpatient YRIS SMITHRah [facility] 012 [id number] [facility] Results Test Description Test Time Test Comments Results Result Comments Source Blood culture, aerobic & anaerobic 2019-07-29 22:03:07 Test Item Blood culture isolate (test code = 600-7) No growth after 5 days of incubation. Specimen InformationSpecimen Source: BloodSpecimen Site: Arm, right [facility] 12 [id number] 06:34:07* Test Item Value Reference Range Interpretation Comments Ventricular rate (test code = 253) 65 Atrial rate (test code = 255) 65 [place] interval (test code = 266) 152 QRSD interval (test code = 260) 82 QT interval (test code = 264) 434 QTC interval (test code = 265) 451 P axis 1 (test code = 267) 59 QRS axis 1 (test code = 268) 74 T wave axis (test code = 270) 76 EKG impression (test code = 273) Normal sinus rhythm-N ormal ECG-In automated comparison with ECG of 26-JUL-2019 07:58,-No significant change was found- [facility] MethodistIonized [id number] 06:18:41* Test Item Value Reference Range Interpretation Comments pH (test code = 2753-2) 7.38 Ionized calcium (test code = 1994-0) 1.20 mmol/L 1.11-1.32 [facility] MethodistBasic metabolic [id number] 06:17:12* Test Item Value Reference Range Interpretation Comments Sodium (test code = 2951-2) 141 135- 148 mEq/L Potassium (test code = 2823-3) 4.4 3.5- 5.0 mEq/L Chloride (test code = 5-0) 102 98- 112 mEq/L CO2 (test code = 2027-9) 30 24- 31 mEq/L Anion gap (test code = 12029-2) 9@ANIO 7- 15 mEq/L BUN (test code = 3094-0) 13 mg/dL 8-23 Creatinine (test code = 0-0) 0.77 mg/dL 0.5-0.9 Glucose (test code = 2345-7) 110 mg/dL 65-99 H Calcium (test code = 65409-6) 9.3 mg/dL 8.8-10.2 Lab Interpretation (test code = 35980-8) Abnormal [facility] MethodistMagnesium [id number] 06:17:12* Test Item Value Reference Range Interpretation Comments Magnesium (test code = 66879-3) 1.8 mg/dL 1.6-2.4 [place] MethodistPhosphorus [id number] 06:17:12* Test Item Value Reference Range Interpretation Comments Phosphorus (test code = 2777-1) 3.3 mg/dL 2.4-4.5 [place] [facility] MethodistEstimated [id number] 06:17:12* Test Item Value Reference Range Interpretation Comments Estimated GFR (test code = 5488) 72 mL/min/1.73 m2 Catergory Units InterpretationG1 >=90 Normal or highG2 60-89 Mildly uozpycbskZ0d 45-59 Mildly to moderately nmmuvrfybU4i 30-44 Moderately to severely decreasedG4 15-29 Severely decreasedG5 <15 Kidney failureThe eGFR was calculated using the Chronic Kidney Disease Epidemiology Collaboration (CKD-EPI) equation. Interpretation is based on recommendations of the National Kidney Foundation-Kidney Disease Outcomes Quality Initiative (NKF-KDOQI) published in 2014. [facility] MethodistCBC with platelet and wtmyycnlqglq3406-77-68 05:53:20* Test Item Value Reference Range Interpretation Comments WBC (test code = 96900-4) 7.26 4.50- 11.00 k/uL RBC (test code = 44757-9) 4.20 m/uL 4.2-5.5 HGB (test code = 718-7) 13.4 g/dL 12-16 HCT (test code = 4544-3) 41.9 % 37-47 MCV (test code = 787-2) 99.8 fL 82-100 MCH (test code = 785-6) 31.9 pg 27-34 MCHC (test code = 786-4) 32.0 g/dL 31-37 RDW - SD (test code = 98139-6) 49.5 fL 37-55 MPV (test code = 77417-8) 11.1 fL 8.8-13.2 Platelet count (test code = 65941-9) 146 150- 400 k/uL L Nucleated RBC (test code = 62578-8) 0.00 /100 WBC Neutrophils (test code = 45302-4) 63.2 % 39-69 Lymphocytes (test code = 48001-7) 20.1 % 25-45 L Monocytes (test code = 00188-2) 13.9 % 0-10 H Eosinophils (test code = 46617-9) 1.9 % 0-5 Basophils (test code = 34808-5) 0.6 % 0-1 Immature granulocytes (test code = 33700-6) 0.3 % 0-1 "Immature granulocytes" (promyelocytes, myelocytes, metamyelocytes) Lab Interpretation (test code = 77535-0) Abnormal [facility] MethodistXR Chest 1 [id number] 05:44:28Hm Interface, Radiology Results 07/28/2019 5:47 AM CDTExamination: XR CHEST 1 PORTABLEClinical history: "ICU pt recent tube or catheter insert, ICU pt stable with no clinical status changes" Comparison: Prior imaging, including a chest radiograph obtained on 07/27/2019.One radiographic view of the chest was evaluated. Impression: Interstitial and trace alveolar opacities within both lungs appear unchanged. A tiny left pleural effusion cannot be excluded; there is no apparent right pleural effusion. Indwelling support devices/catheters appear generally stable in position. No pneumothorac es are identified. The cardiomediastinal silhouette and the remainder of the c hest appear essentially unchanged. [facility]-KOGUERITAjennibreana MethodistElectrophysiology [id number] 16:14:58Electrophysiology Procedure Note REASON FOR PROCEDURE: Sick sinus syndrome PROCEDURE PERFORMED: Dual-chamber permanent pacemaker implant. ANESTHESIA: Moderate sedation services were provided and ordered by myself overseeing the Registered Nurse administration of the sedating agents and monitoring of the patient's condition per protocol for a total of 40 minutes COMPLICATIONS: None. ESTIMATED BLOOD LOSS: 10 mL. DESCRIPTION OF PROCEDURE: The patient was prepped in the usual sterile fashion. Local lidocaine infiltration of the skin and subcutaneous ti ssue was performed. A scalpel was used to make an incision in the left chest jus t below the clavicle.A pocket was created in the prepectoral fascial layer. The left axillary vein was accessed x2 and J-wires x2 were advanced into the inferio r vena cava. Over the first J-wire, a 6-Yakut sheath was placed and a pacing le ad was advanced through the sheath and placed in the heart. The sheath was nat d away. Using stylets, lead was placed in the right ventricular apex and secured to the myocardium. The sensed R-wave was 13 millivolts, pacing impedance 604 o hms, pacing threshold 0.8 volts at 0.5 milliseconds. There was no diaphragmatic capture with 10-volt pacing. A 6-Yakut sheath was placed over the second J-wir e and a pacing lead was advanced through the sheath and placed in the heart. Th e sheath was peeled away. Using stylets, the lead was placed in the right atrial appendage and secured to the myocardium. The sensed P-wave was 6 millivolts, pa cing impedance 512 ohms, pacing threshold 0.4 volts at 0.4 milliseconds. There was no diaphragmatic capture with 10-volt pacing. The leads were secured with 0 Ethibond sutures x2 over the Silastic collar. Bovie cautery was used to achiev e hemostasis. The leads were attached to the generator. The generator and leads were placed in the pocket. The generator was secured with a stitch. The pocket w as then closed with running layers of 0-0, 3-0, and 4-0 Vicryl sutures in fascia , subcutaneous, and subcuticular layers. Dermabond and aDermanet dressing were a pplied. [facility] MethodistComprehensive metabolic [id number] 08:26:04* Test Item Value Reference Range Interpretation Comments Sodium (test code = 2951-2) 144 135- 148 mEq/L Potassium (test code = 2823-3) 3.9 3.5- 5.0 mEq/L Chloride (test code = 5-0) 104 98- 112 mEq/L CO2 (test code = 2027-9) 24 24- 31 mEq/L Anion gap (test code = 55791-9) 16@ANIO 7- 15 mEq/L H BUN (test code = 3094-0) 11 mg/dL 8-23 Creatinine (test code = 2160-0) 0.77 mg/dL 0.5-0.9 Glucose (test code = 2345-7) 108 mg/dL 65-99 H Calcium (test code = 95823-0) 9.8 mg/dL 8.8-10.2 Protein (test code = 2885-2) 7.2 g/dL 6.3-8.3 - 4.6- 7.0 g/dL1 week 4.4-7.6 g/dL7 months-1year 5.1-7.3 g/dL1-2 years 5.6-7.5 g/dL>3 years 6.0-8.0 g/nH65-641 6.3-8.3 g/dL Albumin (test code = 1751-7) 3.6 g/dL 3.5-5 A/G ratio (test code = 1759-0) 1.0 0.7-3.8 Alkaline phosphatase (test code = 6768-6) 63 U/L 35-104 AST (test code = 1920-8) 34 U/L 10-35 ALT (test code = 1741-6) 32 U/L 5-50 Total bilirubin (test code = 1974-) 0.7 mg/dL 0-1.2 Lab Interpretation (test code = 57017-4) Abnormal [place] [facility] MethodistPartial thromboplastin time, [id number] 04:18:25* Test Item Value Reference Range Interpretation Comments PTT (test code = 83759-5) 40.8 23.0- 36.0 sec H PTT therapeutic range for unfractionated heparin is61.0-112.0 seconds which corresponds to Anti-Xa0.3-0.7 U/ml. Lab Interpretation (test code = 92261-9) Abnormal [facility] MethodistPOC [id number] 07:36:26* Test Item Value Reference Range Interpretation Comments POC glucose (test code = 24834-9) 102 mg/dL 65-99 H Bench Precision Assembler Name: Elma Bustillo ID: [id number]: No Action Needed Lab Interpretation (test code = 20318-0) Abnormal [place] [facility] MethodistTransthoracic Echocardiogram Complete, (w Contrast, Strain and 3D if needed)2019-07-25 14:35:00Interface, Radiology Results In - 07/25/2019 2:36 PM CDT Echocardiography Report [id number]Name: BROOK ZIMMER [facility].ID: [id number] .Date: 07/25/2019 Refer.MD: RANJITH TILLMAN MD Exam Time: 11:10:00 AM Study Type:Routine Echo Height: 67in Weight: 198lb BSA: 2.02 m2 Age: 14 1935,84Y Sex: FEMALE Sonogrphr: Sofya Tan, SRUTHI, RVSPat. Stat.:Inpatient Room: [place] [address] Study Status:Final Echo Event ID:[id number] Order ID: [id number] Reason for Study:Atrial fibrillationProcedures: 2D Echo, Colorflow Doppler SUMMARY: LV EF is hyperdynamic.RV systolic function is normal.LA vo lume is severely enlarged.LV filling pressure is normal.Estimated PA systolic pr essure is 30 mmHg, assuming a mean RAP of 5mmHg. ----FINDINGS: LV: Normal average LV gerard bal longitudinal strain at -18.8%. LV EF is hyperdynamic. Overall wall motion is normal. Estimated EF is >70%.RV: RV size is normal. RV systolic function is normal.LA: LA volume is severely enlarged.RA: RA volume is mildly enlarged.AO: Aortic root diameter is normal.YASSINE: No pericardial effusion.AV: No structural AV abnormalities noted.MV: No structural MV abnormalities noted.PV: No structural PV abnormalities noted. A trace of pulmonic regurgitation. TV: No structural TV abnormalities noted. A trace of tricuspid regurgitation [place]: LV filling pressure is normal.Other: Estimated PA systolic pressure is 30 mmHg, assuming a mean RAP of 5 mmHg. MEASUREMENTS: 2DParasternal Long Galva Ao An 2.5 cm LVPWd 1 cm Ao Rtd 3.5 cm Index 1.7 cm/m2 LA Ds 3.8 cm IVSd 1 cm RWT 0.38 LVIDd 5.5 cm Index 2.7 cm/m2 LV Mass 219 g (87-129)* LVIDs 3.3 cm LVM Index 108 g/m2 LV%fs 40 % LVOT 2.2 cm LA Sng Plane LA Area 32 cm2 (8.8-23.4)* LA Vol 124 ml Index 61 ml/m2 LA LngAx 7 cm RA Sng Plane RA Vol 75 ml Index 37 ml/m2 RA LngAx 6.4 cm RA Area 23 cm2 (8.3-19.5)*LVOT LVOT Area 3.7 cm2 DOPPLERLVOT Stroke Vol LVOT TVI 30 cm HR 50 bpm LVOT LVOT SV 112 ml LVOT CO 5.6 l/min SVi 55 ml/m2 LVOT CI 2.8 l/m/m2 Signed 07/25/2019 02:35 Gavino OwensTroponin2020-05-17 06:50:30* Test Item Value Reference Range Interpretation Comments Troponin (test code = 10012-0) 0.017 ng/mL 0-0.04 In patients suspected of having a myocardial infarction, along with all other appropriate clinical measures and actions including ECG and other diagnostics as appropriate, measure Ultra TnI at 0 hrs and at 3 hrs.Myocardial infarction VERY LIKELYThe 0 hr TnI level is > 0.10 ng/mL Austen cardial infarction LIKELYThe 0 hr TnI level is > 0.04 ng/mL and 3 hr level is increased or decreased by at least 0.020 ng/mL Myocardi al infarction VERY UNLIKELYBoth the 0 hr and 3 hr TnI levels <= 0.04 ng/mL(within normal limits) OR 0 hr is > 0.04 ng/mL and 3 hr is increased OR decreased by less than 0.020 ng/mL Reynold BurrellT4, [id number] 05:59:59* Test Item Value Reference Range Interpretation Comments T4, free (test code = 3024-7) 1.2 ng/dL 0.9-1.7 Reynold BurrellThyroid stimulating [id number] 05:59:59* Test Item Value Reference Range Interpretation Comments TSH (test code = 3016-3) 0.17 0.27- 4.20 uIU/mL L Lab Interpretation (test code = 74636-0) Abnormal [facility] MethodistLipid [id number] 05:55:53* Test Item Value Reference Range Interpretation Comments Cholesterol (test code = 2093-3) 129 mg/dL <200 Triglycerides (test code = 2571-8) 74 mg/dL <150 HDL cholesterol (test code = 2085-9) 51 mg/dL >40 LDL cholesterol (test code = 2089-1) 68 mg/dL <100 Result obtained by direct LDL measurement Lipid panel interpretation (test code = 84659-8) SeeBelow Total Cholesterol (mg/dL) <200 Desirable 200-239 Borderline-high >=240 High Triglycerides (mg/dL) <150 Normal 150-199 Borderline-high 200-499 High >=500 Very high HDL Cholesterol (mg/dL) <40 Low (male) <40 Low (female) LDL Cholesterol (mg/dL) <100 Optimal 100-129 Near or above optimal 130-159 Borderline-high 160-189 High >=190 Very high Risk Catergories that modify LDL goals.Risk Catergories LDL goal (mg/dL)CHD and CHD risk equivalent <100 (10-year risk >20%)Multiple (2+) risk factors <130 (10-year risk =<20%)0-1 risk factors <160 (<10-year risk) Defining levels of lipids in metabolic syndromeTriglycerides >=150 mg/dLHDL Cholesterol Men <40 mg/dL Women <40 mg/dL Non-HDL cholesterol is a second target for therapy in personswith high triglycerides (>=200 mg/dL) Reynold BurrellProthrombin time with [id number] 20:26:45* Test Item Value Reference Range Interpretation Comments Prothrombin time (test code = 5902-2) 13.2 11.5- 14.5 sec INR (test code = 82940-8) 1.0 Th e International Normalized Ratio (INR) is a therapeutic monitoring tool for patients who are stable on oral anticoagulant therapy. An INR of 2.0-3.0 is suggested for deep vein thrombosis/pulmonary embolism. Reynold MethodistHemoglobin [id number] 20:26:41* Test Item Value Reference Range Interpretation Comments Hemoglobin A1C (test code = 05226-8) 5.2 % 4-5.6 HbA1c cutoffs for diagnosing diabetes:4.0% - 5.6% = normal5.7% - 6.4% = increased risk for diabetes (prediabetes)9>=6.5% = [id number] for glycemic control (ADA 2016)< 7.0% Target for non adults with diabetes. More or less stringent targets may be appropriate for individual patients. <7.5% Target for Children and adolescents with type 1 diabetes. Reynold BurrellB natriuretic [id number] 19:55:52* Test Item Value Reference Range Interpretation Comments BNP (test code = 85729-1) 43 pg/mL 0-100 Reynold BurrellHepatic function [id number] 19:10:23* Test Item Value Reference Range Interpretation Comments Albumin (test code = 1751-7) 3.2 g/dL 3.5-5 L Total bilirubin (test code = 1974-2) 0.6 mg/dL 0-1.2 Bilirubin direct (test code = 1967-7) <0.2 0-0.3 Alkaline phosphatase (test code = 6768-6) 66 U/L 35-104 Protein (test code = 2885-2) 6.8 g/dL 6.3-8.3 - 4.6- 7.0 g/dL1 week 4.4-7.6 g/dL7 months-1year 5.1-7.3 g/dL1-2 years 5.6-7.5 g/dL>3 years 6.0-8.0 g/dR13-977 6.3-8.3 g/dL ALT (test code = 1742-6) 36 U/L 5-50 AST (test code = 1920-8) 20 U/L 10-35 Lab Interpretation (test code = 27447-5) Abnormal [place] MethodmaryLactic acid [id number] 19:06:11* Test Item Value Reference Range Interpretation Comments Lactic acid (test code = 07180-5) 1.1 mmol/L 0.5-2.2 Reynold Burrell
[2020-01-30] MEDS ORDERED: DOXYCYCLINE HY100 M3 PO (16:47)
[2020-01-30] MEDS ORDERED: BACTRIM DS TAB1 EACH PO (16:47)
[2020-01-30] MEDS ORDERED: PREDNISONE20 MG PO (16:47)
== END 2020-01-30 17:09 | disposition home or self-care (01) ==
LOC: FSED 15:54
DX: L03.811 Cellulitis of head [any part, except face] (principal); W17.89XD Other fall from one level to another, subsequent encounter; Y93.01 Activity, walking, marching and hiking; I10 Essential (primary) hypertension; E78.5 Hyperlipidemia, unspecified; E03.9 Hypothyroidism, unspecified; J44.9 Chronic obstructive pulmonary disease, unspecified
CPT/HCPCS: 99284; J2930